=== PATIENT | female | born 1990 | race Caucasian/White ===

== ENCOUNTER 2025-09-09 20:24 | Emergency (ER) | payer BC ==
[~2025-09-09] VITALS: Ht 162.6 cm; Wt 90.7 kg
[2025-09-09 20:26] VITALS: BP 117/75
[2025-09-09] MEDS ORDERED: IPRA4AER IH (20:38)
[2025-09-09] MEDS ORDERED: PRAZ2CAP2 PO (20:38)
[2025-09-09] MEDS ORDERED: ROPI2TAB26 PO (20:38)
[2025-09-09] MEDS ORDERED: ATOM25CA6 PO (20:38)
[2025-09-09] MEDS ORDERED: metoprolol PO (20:38)
[2025-09-09] MEDS ORDERED: MONT-48 PO (20:38)
[2025-09-09] MEDS ORDERED: ALBU18HF2 IH (20:38)
[2025-09-09] MEDS ORDERED: BUPR1FIL3 SL ×2 (20:38→21:02)
[2025-09-09] MEDS ORDERED: CLINDAMYCIN 900MG/D5W 100ML IVPB **ER PYXIS ONLY IJ ONE (20:54)
[2025-09-09] MEDS: CLINDAMYCIN PHOSPHATE IV 900 MG in IV DEXTROSE 5% 100 ML IV ONE (20:56)
[2025-09-09] MEDS ORDERED: BUPRENORPHINE HCL 2 MG TAB.SUBL SL ONE ×2 (20:58→21:27)
[2025-09-09] MEDS ORDERED: NALO4SPR NS (21:02)
[2025-09-09] MEDS ORDERED: CLIN-188 PO (21:02)
[2025-09-09] MEDS: BUPRENORPHINE HCL 2 MG TAB.SUBL SL ONE ×2 (21:06→21:30)
[2025-09-09 21:07] VITALS: BP 134/83; O2SAT 99
== END 2025-09-09 22:07 | disposition home or self-care (01) ==
LOC: ER 20:24
DX: K05.10 Chronic gingivitis, plaque induced (principal); F11.20 Opioid dependence, uncomplicated; K02.9 Dental caries, unspecified; J45.909 Unspecified asthma, uncomplicated; G89.29 Other chronic pain; F17.210 Nicotine dependence, cigarettes, uncomplicated; Z79.899 Other long term (current) drug therapy
CPT/HCPCS: 99284; 96365; 99406; J3490 ×2; A4606; A4663